=== PATIENT | female | born 1995 | race American Indian/Alaskan Native ===

== ENCOUNTER 2019-04-11 22:36 | Emergency (ER) | payer MEDICAID ==
[2019-04-11] MEDS ORDERED: ACETAMINOPHEN 325 MG TAB PO ONE (23:34)
--- NOTE | 2019-04-12 00:47 | XRay Report ---
Left knee-2 views INDICATION: injury. Unspecified injury one week ago with generalized pain COMPARISON: None. IMPRESSION: No acute osseous or soft tissue abnormality. Normal alignment. No significant degener ative change. Signer Name: Scott Nixon MD Signed: 04/12/2019 12:43 AM Workstation Name: [id number]
--- NOTE | 2019-04-12 02:13 | Emergency Department Report ---
ED Lower Extremity HPI - General Chief Complaint: Extremity Injury, Lower Stated Complaint: LT KNEE PAIN Time Seen by Provider: 04/12/19 02:10 Source: patient Mode of arrival: Ambulatory Limitations: No Limitations - History of Present Illness Initial Comments: The staff's a 23-year-old female who presents with left knee pain, she states fall or strain one week ago. Complains of full rotation left knee pain, as exacerbated by bending and twisting weight bearing. Pain is relieved by offloading. There is no abrasion, laceration, swelling ,or deformity noted. Pain is exacerbated by activity, pain is relieved by rest. MD Complaint: knee injury Onset/Timin -: week(s) Injury: Knee: Left Type of Injury: hyperflexion Place: home Severity: moderate Severity scale (0 -10): 4 Improves With: rest Worsens With: weight bearing, movement, palpation Context: fall, direct blow Associated Symptoms: ambulatory. denies: swelling, numbness, tingling - Related Data Previous Rx's Medication Instructions Recorded Last Taken Type Ondansetron [Zofran TAB] 4 mg PO Q8HR PRN #12 tablet 08/24/17 Unknown Rx Pnv No.95/Ferrous Fum/Folic AC 1 each PO QDAY 30 Days #30 tablet 08/24/17 Unknown Rx [ Vitamin Tablet] metroNIDAZOLE [Flagyl] 500 mg PO Q12HR 7 Days #14 tab 08/24/17 Unknown Rx Allantoin/Onion/Peg/Water [Mederma 20 gm TP BID PRN #1 gel..gram. 11/10/17 Unknown Rx Gel] Ibuprofen [Motrin] 600 mg PO Q8H PRN #12 tablet 11/10/17 Unknown Rx cephALEXin [Keflex] 500 mg PO Q8HR 10 Days #30 cap 11/10/17 Unknown Rx Allergies Allergy/AdvReac Type Severity Reaction Status Date / Time No Known Allergies Allergy Unverified 08/24/17 11:32 ED Review of Systems ROS: Stated complaint: LT KNEE PAIN Other details as noted in HPI Constitutional: denies: chills, fever Eyes: denies: eye pain, eye discharge, vision change ENT: denies: ear pain, throat pain Respiratory: denies: cough, shortness of breath, wheezing Cardiovascular: denies: chest pain, palpitations Endocrine: no symptoms reported Gastrointestinal: denies: abdominal pain, nausea, diarrhea Genitourinary: denies: urgency, dysuria, discharge Musculoskeletal: other (knee pain ). denies: back pain, joint swelling, arthralgia, myalgia Skin: denies: rash, lesions Neurological: denies: headache, weakness, paresthesias Psychiatric: denies: anxiety, depression Hematological/Lymphatic: denies: easy bleeding, easy bruising ED Past Medical Hx - Past Medical History Previous Medical History?: No - Surgical History Past Surgical History?: No - Social History Smoking Status: Former Smoker Substance Use Type: Alcohol - Medications Home Medications: Home Medications Medication Instructions Recorded Confirmed Last Taken Type Ondansetron [Zofran TAB] 4 mg PO Q8HR PRN #12 tablet 08/24/17 Unknown Rx Pnv No.95/Ferrous Fum/Folic AC 1 each PO QDAY 30 Days #30 tablet 08/24/17 Unknown Rx [ Vitamin Tablet] metroNIDAZOLE [Flagyl] 500 mg PO Q12HR 7 Days #14 tab 08/24/17 Unknown Rx Allantoin/Onion/Peg/Water [Mederma 20 gm TP BID PRN #1 gel..gram. 11/10/17 Unknown Rx Gel] Ibuprofen [Motrin] 600 mg PO Q8H PRN #12 tablet 11/10/17 Unknown Rx cephALEXin [Keflex] 500 mg PO Q8HR 10 Days #30 cap 11/10/17 Unknown Rx ED Physical Exam - General Limitations: No Limitations General appearance: alert, in no apparent distress - Head Head exam: Present: atraumatic, normocephalic - Eye Eye exam: Present: normal appearance, PERRL, EOMI Pupils: Present: normal accommodation - ENT ENT exam: Present: normal exam, mucous membranes moist - Neck Neck exam: Present: normal inspection, full ROM. Absent: tenderness - Respiratory Respiratory exam: Present: normal lung sounds bilaterally. Absent: respiratory distress - Cardiovascular Cardiovascular Exam: Present: regular rate, normal rhythm, normal heart sounds. Absent: systolic murmur, diastolic murmur, rubs, gallop - GI/Abdominal GI/Abdominal exam: Present: soft, normal bowel sounds. Absent: tenderness, guarding, rebound, bruit, hernia - Rectal Rectal exam: Present: deferred - Extremities Exam Extremities exam: Present: full ROM, tenderness, normal capillary refill. Absent: pedal edema, joint swelling - Expanded Lower Extremity Exam Left Hip exam: Present: full ROM. Absent: tenderness Upper Leg exam: Present: normal inspection, full ROM. Absent: tenderness Knee exam: Present: full ROM, tenderness (left medial tenderness, no swelling no deformity, no drawer catch or pop , pain with rotation ), pain w/ pronation/supination, pain/laxity with valgus, pain/laxity with varus, full knee extension. Absent: swelling, abrasion, laceration, ecchymosis, deformity, crepidus, dislocation, erythema, effusion, posterior draw sign Lower Leg exam: Present: normal inspection, full ROM. Absent: tenderness Ankle exam: Present: normal inspection, full ROM. Absent: tenderness Foot/Toe exam: Present: normal inspection, full ROM. Absent: tenderness Neuro vascular tendon exam: Absent: pulse deficit, motor deficit, sensory deficit, tendon deficit Gait: Positive: observed and normal - Back Exam Back exam: Present: normal inspection, full ROM. Absent: tenderness, muscle spasm, paraspinal tenderness, vertebral tenderness - Neurological Exam Neurological exam: Present: alert, oriented X3, CN II-XII intact, normal gait - Psychiatric Psychiatric exam: Present: normal affect, normal mood - Skin Skin exam: Present: warm, dry, intact, normal color. Absent: rash ED Course Vital Signs 04/11/19 22:39 Temperature 98.6 F Pulse Rate 82 Respiratory 18 Rate Blood Pressure 139/72 O2 Sat by Pulse 99 Oximetry ED Lower Extremity MDM - Radiology Data Radiology results: report reviewed, image reviewed Findings [facility] [address] [place] [address] XRay Report Signed Patient: KIKO SNYDER MR#: [id number] : 1995 Acct:[id number] Age/Sex: 23 / F ADM Date: 04/11/19 Loc: ED Attending Dr: Ordering Physician: SAMANTHA HOLT MD Date of Service: 04/11/19 Procedure(s): XR knee 1-2V LT Accession Number(s): [id number] cc: ED MD JONATHON Fluoro Time In Minutes: Left knee-2 views INDICATION: injury. Unspecified injury one week ago with generalized pain COMPARISON: None. IMPRESSION: No acute osseous or soft tissue abnormality. Normal alignment. No significant degenerative change. Signer Name: Scott Nixon MD Signed: 04/12/2019 12:43 AM Workstation Name: [id number] Transcribed By: JILL Dictated By: Scott Nixon MD Electronically Authenticated By: Scott Nixon MD Signed Date/Time: 04/12/1942 DD/ TD/TT: - Medical Decision Making this is a knee strain , no deformity, no swelling, plan , zoran wrap , nsaids , knee exercises follow up with pcp in 2-3 days. pt verbalized agreement and understanding of discharge plan. Critical care attestation.: If time is entered above; I have spent that time in minutes in the direct care of this critically ill patient, excluding procedure time. ED Disposition Clinical Impression: Knee strain Qualifiers: Encounter type: initial encounter Laterality: left Qualified Code(s): S86.912A - Strain of unspecified muscle(s) and tendon(s) at lower leg level, left leg, initial encounter Disposition: - TO HOME OR SELFCARE Is pt being admited?: No Does the pt Need Aspirin: No Condition: Stable Instructions: Knee Pain (ED), Knee Exercises (GEN) Additional Instructions: take otc ibuprofen as needed for pain , Referrals: [facility] [Outside] - 3-5 Days Forms: Work/School Release Form(ED) Time of Disposition: 03:11
[2019-04-12 03:36] VITALS: BP 143/94
== END 2019-04-12 03:36 | disposition home or self-care (01) ==
LOC: ED 22:36
DX: S86.912A Strain of unspecified muscle(s) and tendon(s) at lower leg level, left leg, initial encounter (principal); Z87.891 Personal history of nicotine dependence; Z79.899 Other long term (current) drug therapy; W19.XXXA Unspecified fall, initial encounter; Y93.89 Activity, other specified; Y92.89 Other specified places as the place of occurrence of the external cause; Y99.8 Other external cause status